=== PATIENT | male | born 1940 | race Caucasian/White ===

== ENCOUNTER 2016-08-21 08:20 | Emergency (ER) | payer OTHER, MEDICARE ==
[2016-08-21 08:25] VITALS: O2SAT 96
--- NOTE | 2016-08-21 08:34 | EDPHY ---
H & P Stated Complaint: DIZZY, LIGHTHEADED Time Seen by Provider: 08/21/16 08:33 HPI/ROS: CHIEF COMPLAINT: Dizziness, lightheadedness HISTORY OF PRESENT ILLNESS: The patient presents to the ED with a 2 day history of dizziness and lightheadedness. The patient's symptoms reportedly began after swimming. He denies focal numbness or weakness. He has no complaints of aphasia or dysarthria. The patient has no complaints of an acute headache. The patient takes no regular medications. The patient denies specific vertigo. The patient states his symptoms are worse as he looks downward. The patient denies fall or trauma. He has no complaints of neck pain or recent cervical manipulation. REVIEW OF SYSTEMS: A comprehensive 10 point review of systems is otherwise negative aside from elements mentioned in the history of present illness. 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 PSH- HERNIA REPAIRS - Social History Smoking Status: Never smoked - Physical Exam Exam: General Appearance: Alert, no distress Eyes: Pupils equal and round no pallor or injection ENT, Mouth: Mucous membranes moist Respiratory: There are no retractions, lungs are clear to auscultation Cardiovascular: Regular rate and rhythm Gastrointestinal: Abdomen is soft and nontender, no masses, bowel sounds normal Neurological: A&O, normal motor function, normal sensory exam, normal cranial nerves Skin: Warm and dry, no rashes Musculoskeletal: Neck is supple nontender Extremities: symmetrical, full range of motion Constitutional: Initial Vital Signs Temperature (C) 36.6 C 08/21/16 08:21 Heart Rate 75 08/21/16 08:21 Respiratory Rate 16 08/21/16 08:21 Blood Pressure 213/79 H 08/21/16 08:21 O2 Sat (%) 96 08/21/16 08:21 O2 Delivery Mode Room Air Allergies/Adverse Reactions: No Known Allergies Allergy (Unverified 08/21/16 08:22) Home Medications: Medication Instructions Recorded Meclizine HCl [Meclizine HCl 25 mg 25 mg PO BID PRN #20 tab 08/21/16 (RX,OTC)] Ondansetron Odt [Zofran Odt] 4 mg PO Q4PRN PRN #20 tab 08/21/16 Medical Decision Making - Diagnostics EKG Interpretation: EKG: Complete interpretation has been separately recorded in the [employer] archive. Summary impression: Sinus rhythm, rate 58 Imaging: MRI of the Brain (Without Contrast), 10 am History: Disequilibrium, dizziness, hypertension, possible stroke COMPARISON: None. Technique: T1-weighted images were acquired axially and sagittally from the foramen magnum to the vertex. Axial fast inversion recovery, fast T2-weighted, GRE and diffusion- weighted axial images were obtained without contrast. Findings: There are many scattered bilateral subcortical, deep and periventricular white matter foci of T2 weighted isovolumic hyperintensity, none of which are bright on the diffusion study or are associated with hemorrhage on the gradient study. These are consistent with chronic microvascular ischemic changes of in nature often seen in elderly patients. The ventricles, cisterns, and sulci are normal without atrophy, hydrocephalus, midline shift, herniation, or epidural/subdural hematomas. No intracranial hemorrhage or masses. Diffusion- weighted sequence demonstrates no acute infarct. There is no obvious abnormality in either cerebellar pontine angle. Cerebellar tonsils are in normal position. No cerebellar hemorrhage, mass or infarction is identified. Pituitary gland is normal in size. Normal signal flow-void in the superior sagittal sinus, dominant distal right vertebral artery, basilar artery , and bilateral distal internal carotid arteries indicating patency. Paranasal sinuses , both middle ears and mastoid air cells are without fluid. 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 Impression: Normal MRI of the brain for age. 1. CT Angiography of the Head, 10:00 AM Clinical Indications: Disequilibrium, hypertension, possible stroke, R29.818 Neurological changes Technique: During automated power injection of 95 mL of Isovue-370, thinly collimated spiral ( volumetric) multidetector helical CT was performed through the head. Independent three-dimensional computer workstation was used for additional manipulations of images by the radiologist. Dose reduction techniques were utilized. Findings: The [place] of [place] and its branches are normal. No evidence of aneurysm of vascular malformation. No arterial occlusions , thrombosis or embolism are found. No evidence of intracranial arterial vascular malformation. There is possibly partial thrombosis of the superior sagittal sinus versus findings related to the attempted "arterial phase" of this study. Both internal cerebral veins, the basilar vein of [place], the straight sinus, transverse sinuses and sigmoid sinuses are patent. The dominant right vertebral artery, basilar artery , both posterior cerebral arteries and superior cerebellar arteries are patent. Both posterior and first cerebellar arteries are patent. The right anterior inferior cerebellar artery is identified and is patent. The basilar tip is normal. The distal internal carotid arteries, A1, A2 and anterior cerebral arteries look normal. The M1, M2 and middle cerebral trifurcations look normal. Impression: Possible partial superior sagittal sinus thrombosis. Due to the arterial phase of this study this finding is equivocal. All vessel evaluations are based on NASCET criteria. 2. CT Angiography Of the Neck,10:00 AM Clinical Indications: Disequilibrium, hypertension, possible stroke Technique: During automated power injection of 95 mL of Isovue-370, thinly collimated spiral ( volumetric) multidetector helical CT was performed through the head. Independent three-dimensional computer workstation was used for additional manipulations of images by the radiologist. Dose reduction techniques were utilized. Findings: The common carotid arteries carotid bifurcations and internal carotid arteries are widely patent. There is smooth calcified plaque in the right carotid bifurcation that causes less than a 10% diameter stenosis based on NASCET criteria. There is smooth calcified and noncalcified plaque in the left carotid bifurcation that causes less than a 20% diameter stenosis based NASCET criteria. The dominant right vertebral artery is patent. The left vertebral artery is diminutive in size and terminates at the level of the C2-C3 disk space in a cervical branch. Impression: Impression: No flow-limiting stenosis or thrombosis. All vessel evaluations are based on NASCET criteria. Final concordant results discussed with Dr. David Power at 11:20 AM. ED Course/Re-evaluation: The patient presents to the ED for evaluation of disequilibrium. The patient was noted to be quite hypertensive upon arrival. He does report a reported history of white coat hypertension." The patient reports that he is having ongoing disequilibrium. I appreciate no obvious nystagmus on his examination. The patient will be evaluated for possible stroke as he is hypertensive with acute neurologic symptoms of disequilibrium. MRI of the brain demonstrates no evidence of an acute stroke Angiographic studies of his head neck are normal. The patient did have some improvement of his blood pressure while in the emergency department. The patient's BP is now 170/90. I re-evaluated the patient at 11:35 a.m.. I informed him of the test results. I will treat the patient with meclizine and Zofran for possible peripheral vertigo. Additionally the patient will follow up with our on-call primary care provider for a blood pressure recheck later this week. The patient has been instructed to return to the ED for any progressive neurologic symptoms, worsening symptoms or other concerns. Differential Diagnosis: Differential diagnosis considered includes peripheral vertigo, stroke, TIA, carotid dissection, vertebral dissection, labyrinthitis - Data Points Laboratory Results: Laboratory Results 08/21/16 08:55 08/21/16 08:55 08/21/16 08/21/16 08:58 08:55 WBC 3.96 10^3/uL (3.80-9.50) RBC 4.52 10^6/uL (4.40-6.38) Hgb 14.9 g/dL (13.7-17.5) POC Hgb 15.6 gm/dL (14.5-17.3) Hct 43.3 % (40.0-51.0) POC Hct 46 % (42.8-50.6) MCV 95.8 fL (81.5-99.8) MCH 33.0 pg (27.9-34.1) MCHC 34.4 g/dL (32.4-36.7) RDW 13.2 % (11.5-15.2) Plt Count 210 10^3/uL (150-400) MPV 10.2 fL (8.7-11.7) Neut % (Auto) 59.3 % (39.3-74.2) Lymph % (Auto) 26.3 % (15.0-45.0) Allen % (Auto) 7.8 % (4.5-13.0) Eos % (Auto) 5.3 % (0.6-7.6) Baso % (Auto) 1.0 % (0.3-1.7) Nucleat RBC Rel Count 0.0 % (0.0-0.2) Absolute Neuts (auto) 2.35 10^3/uL (1.70-6.50) Absolute Lymphs (auto) 1.04 10^3/uL (1.00-3.00) Absolute Monos (auto) 0.31 10^3/uL (0.30-0.80) Absolute Eos (auto) 0.21 10^3/uL (0.03-0.40) Absolute Basos (auto) 0.04 10^3/uL (0.02-0.10) Absolute Nucleated RBC 0.00 10^3/uL (0-0.01) Immature Gran % 0.3 % (0.0-1.1) Immature Gran # 0.01 10^3/uL (0.00-0.10) POC Sodium 143 mEq/L (134-144) Sodium 141 mEq/L (134-144) POC Potassium 3.8 mEq/L (3.3-5.0) Potassium 4.1 mEq/L (3.5-5.2) POC Chloride 101 mEq/L (96-108) Chloride 103 mEq/L (97-110) Carbon Dioxide 30 mEq/l (22-31) Anion Gap 8 mEq/L (8-16) POC BUN 20 mg/dL (7-23) BUN 18 mg/dL (7-23) Creatinine 0.7 mg/dL (0.7-1.3) POC Creatinine 0.7 L mg/dL (0.8-1.5) Estimated GFR > 60 Glucose 111 H mg/dL (70-100) POC Glucose 113 H mg/dL (70-100) Calcium 9.1 mg/dL (8.5-10.4) Point of Care Test Results: 08/21/16 08:58 POC Sodium 143 POC Potassium 3.8 POC Chloride 101 POC BUN 20 POC Creatinine 0.7 L POC Glucose 113 H Departure - Departure Disposition: Home, Routine, Self-Care Clinical Impression: Hypertension, Peripheral vertigo Condition: Good Instructions: Hypertension (ED), Dizziness (ED) Additional Instructions: 1. Please follow up with Dr. Rocha this week for a blood pressure recheck. 2. Please return to the ED for any worsening symptoms, focal weakness, tingling , difficulty with speech, difficulty with walking or other concerns. 3. Meclizine as needed for dizziness 4. Zofran as needed for nausea Referrals: Alpesh Rocha MD [Medical Doctor] - As per Instructions
--- NOTE | 2016-08-21 08:54 | CPEKG ---
Heart Rate: 58 RR Interval: 1034 P-R Interval: 188 QRSD Interval: 96 QT Interval: 456 QTC Interval: 448 P [place]: 66 QRS [place]: 39 T Wave [place]: 45 EKG Severity - BORDERLINE ECG - EKG Impression: SINUS RHYTHM Electronically Signed By: Hossein Yates 21-Aug-2016 09:10:06
[2016-08-21 09:07] LABS: % IMMATURE GRANULYOCYTES 0.3 % (0.0-1.1); ABSOLUTE IMMATURE GRANULOCYTES 0.01 10^3/uL (0.00-0.10); ADD DIFF? NO; ADD MORPH? NO; ADD SCAN? NO; ATYPICAL LYMPHOCYTE FLAG 10 (0-99); FRAGMENT RBC FLAG 0 (0-99); HEMATOCRIT 43.3 % (40.0-51.0); HEMOGLOBIN 14.9 g/dL (13.7-17.5); LEFT SHIFT FLG 0 (0-99); LIPEMIA HEMOLYSIS FLAG 90 (0-99); MEAN CELL HEMOGLOBIN CONCENTR. 34.4 g/dL (32.4-36.7); MEAN CELL VOLUME 95.8 fL (81.5-99.8); MEAN PLATELET VOLUME 10.2 fL (8.7-11.7); PLATELET CLUMPS FLAG 10 (0-99); PLATELET COUNT 210 10^3/uL (150-400); RED BLOOD CELL COUNT 4.52 10^6/uL (4.40-6.38); RED CELL DISTRIBUTION WIDTH 13.2 % (11.5-15.2)
[2016-08-21 09:33] LABS: ANION GAP 8 mEq/L (8-16); CALCIUM 9.1 mg/dL (8.5-10.4); CARBON DIOXIDE 30 mEq/l (22-31); CHLORIDE 103 mEq/L (97-110); CREATININE 0.7 mg/dL (0.7-1.3); GLOMERULAR FILTRATION RATE > 60; GLUCOSE 111 mg/dL (70-100); POTASSIUM 4.1 mEq/L (3.5-5.2); SODIUM 141 mEq/L (134-144)
[2016-08-21 09:38] VITALS: PULSE 68; RESP 18
[2016-08-21] MEDS ORDERED: IOPAMIDOL (ISOVUE 370) 100 ML BTL IV ONE (09:44)
--- NOTE | 2016-08-21 11:06 | MR ---
MRI of the Brain (Without Contrast), 10 am History: Disequilibrium, dizziness, hypertension, possible stroke COMPARISON: None. Technique: T1-weighted images were acquired axially and sagittally from the foramen magnum to the ve rtex. Axial fast inversion recovery, fast T2-weighted, GRE and diffusion-weighted axial images were obtained without contrast. Findings: There are many scattered bilateral subcortical, deep and periventricular white matter foci of T2 weighted isovolumic hyperintensity, none of which are bright on the diffusion study or are asso ciated with hemorrhage on the gradient study. These are consistent with chronic microvascular ischemi c changes of in nature often seen in elderly patients. The ventricles, cisterns, and sulci are normal without atrophy, hydrocephalus, midline shift, herniat ion, or epidural/subdural hematomas. No intracranial hemorrhage or masses. Diffusion-weighted sequenc e demonstrates no acute infarct. There is no obvious abnormality in either cerebellar pontine angle. Cerebellar tonsils are in normal position. No cerebellar hemorrhage, mass or infarction is identified . Pituitary gland is normal in size. Normal signal flow-void in the superior sagittal sinus, dominant distal right vertebral artery, basilar artery, and bilateral distal internal carotid arteries indica ting patency. Paranasal sinuses , both middle ears and mastoid air cells are without fluid. 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 Impression: Normal MRI of the brain for age. Results called to Dr. David Power at 11:04 am
--- NOTE | 2016-08-21 11:23 | CT ---
1. CT Angiography of the Head, 10:00 AM Clinical Indications: Disequilibrium, hypertension, possible stroke, R29.818 Neurological changes Technique: During automated power injection of 95 mL of Isovue-370, thinly collimated spiral (volume tric) multidetector helical CT was performed through the head. Independent three-dimensional [employer] workstation was used for additional manipulations of images by the radiologist. Dose reduction tech niques were utilized. Findings: The [place] of [place] and its branches are normal. No evidence of aneurysm of vascular malf ormation. No arterial occlusions , thrombosis or embolism are found. No evidence of intracranial art erial vascular malformation. There is possibly partial thrombosis of the superior sagittal sinus vers us findings related to the attempted "arterial phase" of this study. Both internal cerebral veins, th e basilar vein of [place], the straight sinus, transverse sinuses and sigmoid sinuses are patent. T he dominant right vertebral artery, basilar artery, both posterior cerebral arteries and superior cer ebellar arteries are patent. Both posterior and first cerebellar arteries are patent. The right anter ior inferior cerebellar artery is identified and is patent. The basilar tip is normal. The distal int ernal carotid arteries, A1, A2 and anterior cerebral arteries look normal. The M1, M2 and middle cere bral trifurcations look normal. Impression: Possible partial superior sagittal sinus thrombosis. Due to the arterial phase of this st udy this finding is equivocal. All vessel evaluations are based on NASCET criteria. 2. CT Angiography Of the Neck,10:00 AM Clinical Indications: Disequilibrium, hypertension, possible stroke Technique: During automated power injection of 95 mL of Isovue-370, thinly collimated spiral (volume tric) multidetector helical CT was performed through the head. Independent three-dimensional [employer] workstation was used for additional manipulations of images by the radiologist. Dose reduction tech niques were utilized. Findings: The common carotid arteries carotid bifurcations and internal carotid arteries are widely p atent. There is smooth calcified plaque in the right carotid bifurcation that causes less than a 10% diameter stenosis based on NASCET criteria. There is smooth calcified and noncalcified plaque in the left carotid bifurcation that causes less than a 20% diameter stenosis based NASCET criteria. The dom inant right vertebral artery is patent. The left vertebral artery is diminutive in size and terminate s at the level of the C2-C3 disk space in a cervical branch. Impression: Impression: No flow-limiting stenosis or thrombosis. All vessel evaluations are based on NASCET criteria. Final concordant results discussed with Dr. David Power at 11:20 AM.
[2016-08-21 12:02] VITALS: BP 194/105; TEMP 98.4
== END 2016-08-21 12:00 | disposition home or self-care (01) ==
DX: H81.399 Other peripheral vertigo, unspecified ear (principal); I10 Essential (primary) hypertension
CPT/HCPCS: 70496; 70498; 70551; 93005; 99285; Q9967; 82947-QW

== ENCOUNTER → 2016-10-08 | Outpatient (CLI) | payer OTHER, MEDICARE | LOC: BMCIMAGING 10:42 | PROVIDERS: ATTEND Urology | DX: N28.1 Cyst of kidney, acquired (principal) ==

== ENCOUNTER → 2016-11-05 | Outpatient (CLI) | payer OTHER, MEDICARE ==
[~2016-11-05] MED LIST: IOPAMIDOL (ISOVUE-300) 100 ML BTL IV ONE
== END ==
LOC: FIMAGING 15:42
PROVIDERS: ATTEND Urology
DX: N20.0 Calculus of kidney (principal); N28.1 Cyst of kidney, acquired
CPT/HCPCS: 74178; Q9967